=== PATIENT | female | born 1990 | race Caucasian/White ===

== ENCOUNTER 2017-07-15 19:37 | Emergency (ER) | payer SELFPAY ==
[~2017-07-15] VITALS: Ht 165.1 cm; Wt 127.0 kg
[2017-07-16] MEDS ORDERED: KETOROLAC 30MG/ML VIAL IM STA (00:59)
[2017-07-16] MEDS ORDERED: ONDANSETRON HCL 4MG/2ML VIAL IV STA (00:59)
[2017-07-16 01:17] LABS: CLARITY URINE CLEAR (CLEAR); COLOR URINE YELLOW (YELLOW); GLUCOSE URINE NEGATIVE (NEGATIVE); KETONES URINE TRACE (NEGATIVE); LEUKOCYTE ESTERASE URINE NEGATIVE (NEGATIVE); NITRITE URINE NEGATIVE (NEGATIVE); OCCULT BLOOD URINE NEGATIVE (NEGATIVE); PH URINE 5.5 (4.5-8.0); PROTEIN URINE NEGATIVE (NEGATIVE); SPECIFIC GRAVITY URINE 1.035 (1.005-1.030)
[2017-07-16 01:28] LABS: BASOPHILS % 1.2 % (0.0-2.0); HEMATOCRIT. 38.4 % (36.0-48.0); LYMPHOCYTES % 29.1 % (20.0-50.0); MEAN CORPUSCULAR HEMOGLOBIN 27.4 pg (28.0-32.0); MEAN CORPUSCULAR VOLUME 80.6 fL (81.0-99.0); MONOCYTES % 7.4 % (2.0-8.0); NEUTROPHILS % 57.3 % (40.0-76.0); PLATELET 287 x1000/uL (130-400); RED BLOOD CELL COUNT 4.76 mill/uL (4.2-5.4); RED CELL DISTRIBUTION WIDTH 13.9 % (11.6-14.6)
[2017-07-16 01:37] LABS: PROTHROMBIN TIME 10.3 sec (9.4-11.6)
[2017-07-16 01:38] LABS: CHLORIDE 104 mEq/L (98-107)
[2017-07-16 01:54] LABS: CARBON DIOXIDE 27 mEq/L (21-32)
[2017-07-16 01:59] LABS: B-HCG QUANTITATIVE < 1 mIU/mL (<3)
[2017-07-16 02:30] VITALS: BP 105/56
[2017-07-16] MEDS: ONDANSETRON 4MG ODT PO PRN ×3 (03:07→03:10)
== END 2017-07-16 03:17 | disposition home or self-care (01) ==
LOC: ER 19:38
DX: R19.7 Diarrhea, unspecified (principal); R03.0 Elevated blood-pressure reading, without diagnosis of hypertension
CPT/HCPCS: 36415; 80053; 81003; 83690; 84702; 85025; 85610; 99284; J1885; Q0162

== ENCOUNTER 2017-11-24 00:21 | Emergency (ER) | payer MEDICAID ==
[~2017-11-24] VITALS: Ht 165.1 cm; Wt 116.0 kg
[2017-11-24 00:45] VITALS: BP 122/64
[2017-11-24 01:13] LABS: CLARITY URINE CLEAR (CLEAR); COLOR URINE YELLOW (YELLOW); KETONES URINE NEGATIVE (NEGATIVE); LEUKOCYTE ESTERASE URINE NEGATIVE (NEGATIVE); NITRITE URINE NEGATIVE (NEGATIVE); OCCULT BLOOD URINE NEGATIVE (NEGATIVE); PH URINE 6.5 (4.5-8.0); PROTEIN URINE NEGATIVE (NEGATIVE); SPECIFIC GRAVITY URINE 1.022 (1.005-1.030)
== END 2017-11-24 08:51 | disposition left against medical advice (07) ==
LOC: ER 00:21
DX: M54.5 Low back pain (principal); Z53.21 Procedure and treatment not carried out due to patient leaving prior to being seen by health care provider
CPT/HCPCS: 81003; 81025

== ENCOUNTER 2018-02-01 19:59 | Emergency (ER) | payer MEDICAID ==
[~2018-02-01] VITALS: Ht 165.1 cm; Wt 98.0 kg
[2018-02-01] MEDS ORDERED: ACETAMINOPHEN 325MG TABLET PO STA (22:19)
[2018-02-01] MEDS ORDERED: SODIUM CHLORIDE 0.9% 500 ML IV ONE (22:30)
[2018-02-01 23:05] LABS: BASOPHILS % 0.8 % (0.0-2.0); EOSINOPHILS % 2.1 % (0.0-5.0); HEMATOCRIT. 38.4 % (36.0-48.0); HEMOGLOBIN. 13.5 g/dL (12.0-16.0); LYMPHOCYTES % 21.2 % (20.0-50.0); MEAN CORPUSCULAR HEMOGLOBIN 28.9 pg (28.0-32.0); MEAN PLATELET VOLUME 8.2 fl (7.4-10.4); MONOCYTES % 4.3 % (2.0-8.0); NEUTROPHILS % 71.6 % (40.0-76.0); PLATELET 278 x1000/uL (130-400); RED BLOOD CELL COUNT 4.68 mill/uL (4.2-5.4); RED CELL DISTRIBUTION WIDTH 13.7 % (11.6-14.6)
[2018-02-01 23:07] LABS: CHLORIDE 104 mEq/L (98-107)
[2018-02-01 23:08] LABS: INR 0.9; PROTHROMBIN TIME 9.5 sec (9.4-11.6)
[2018-02-01 23:44] LABS: CLARITY URINE CLEAR (CLEAR); COLOR URINE YELLOW (YELLOW); KETONES URINE NEGATIVE (NEGATIVE); LEUKOCYTE ESTERASE URINE NEGATIVE (NEGATIVE); NITRITE URINE NEGATIVE (NEGATIVE); OCCULT BLOOD URINE NEGATIVE (NEGATIVE); PH URINE 5.5 (4.5-8.0); PROTEIN URINE NEGATIVE (NEGATIVE); SPECIFIC GRAVITY URINE 1.018 (1.005-1.030); UROBILINOGEN URINE 0.2 E.U./dL (0.2-1.0)
[2018-02-02 03:15] VITALS: BP 129/70
== END 2018-02-02 03:27 | disposition home or self-care (01) ==
LOC: ER 22:29
DX: O99.282 Endocrine, nutritional and metabolic diseases complicating pregnancy, second trimester (principal); E86.0 Dehydration; R51 Headache; R11.0 Nausea; Z3A.16 16 weeks gestation of pregnancy
CPT/HCPCS: 36415; 76805; 80053; 81003; 85025; 85610; 96360; 96361; 99285; J7030; J7040; Z7610

== ENCOUNTER 2018-05-06 18:45 | Emergency (ER) | payer MEDICAID ==
[~2018-05-06] VITALS: Ht 165.1 cm; Wt 113.0 kg
[2018-05-06 18:50] VITALS: BP 158/76
== END 2018-05-06 21:00 | disposition left against medical advice (07) ==
LOC: ER 18:45
DX: K62.89 Other specified diseases of anus and rectum (principal); Z53.21 Procedure and treatment not carried out due to patient leaving prior to being seen by health care provider